=== PATIENT | female | born 1955 | race Caucasian/White ===

== ENCOUNTER 2016-07-18 09:46 | Emergency (ER) | payer OTHER ==
[2016-07-18 10:18] LABS: ABSOLUTE NEUTROPHIL COUNT 3.1 K/mm3 (1.8-7.7); BASO # 0.1 K/mm3 (0.0-0.2); BASO % 0.9 % (0.2-1.0); EOS # 0.1 (0.0-0.5); EOS % 1.7 % (0.9-2.9); HEMATOCRIT 40.9 % (37.0-47.0); HEMOGLOBIN 13.8 gm/l (12.0-16.0); IMM NEUT% 0.6 % (0-1); LYMPH # 2.9 (1.0-4.8); LYMPH % 44.3 % (15-45); MEAN CELL VOLUME 88.1 fl (81.0-99.0); MEAN CORPUSCULAR HEMOGLOBIN 29.7 pg (27.0-31.0); MEAN CORPUSCULAR HGB CONC 33.7 g/dl (33.0-37.0); MEAN PLATELET VOLUME 9.5 fl (7.4-10.4); MONO # 0.4 (0.0-0.8); MONO % 5.7 % (4-12); NEUT % 46.8 % (43-75); PLATELET COUNT 204 K/mm3 (130-400); RED CELL DISTRIBUTION WIDTH 13.2 % (11.5-14.5)
[2016-07-18 10:24] LABS: ALB/GLOB RATIO 1.4 (>1.0); ALBUMIN 4.4 gm/dL (3.5-5.7); CALCIUM 9.5 mg/dL (8.6-10.3); MAGNESIUM 1.9 mg/dL (1.9-2.7)
[2016-07-18 10:30] LABS: TROPONIN I < 0.01 ng/ml (0.0-0.06)
[2016-07-18 10:34] LABS: CKMB ISOENZYME 0.8 ng/ml (0.6-6.3)
--- NOTE | 2016-07-18 11:01 | RAD ---
Exam: Two-view chest COMPARISON: None INDICATION: Tachycardia. FINDINGS: PA and lateral views of the chest were obtained. Cardiac silhouette is within normal limits. Lungs normally inflated. There is no focal airspace disease or pleural effusion. Bones of the chest wall within normal limits. IMPRESSION: Negative chest.
== END 2016-07-18 11:25 | disposition home or self-care (01) ==
LOC: ED 09:46
DX: R00.2 Palpitations (principal); E07.9 Disorder of thyroid, unspecified